=== PATIENT | male | born 2000 | race Caucasian/White ===

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

== ENCOUNTER 2019-04-05 23:18 | Emergency (ER) | payer SELFPAY ==
[~2019-04-05] VITALS: Ht 170.2 cm; Wt 70.3 kg
[2019-04-05 23:33] VITALS: BP 122/79; Ht 170.2 cm; Wt 70.3 kg
== END 2019-04-06 01:03 | disposition left against medical advice (07) ==
LOC: ED 23:18
DX: Z53.21 Procedure and treatment not carried out due to patient leaving prior to being seen by health care provider (principal)